=== PATIENT | male | born 1995 | race Caucasian/White ===

== ENCOUNTER → 2024-12-20 15:11 | Outpatient (CLI) | payer SELFPAY ==
--- NOTE | 2024-12-20 15:16 | DI.RAD.S_ITS ---
PROCEDURE: XR LUMBAR SPINE 2-3V INDICATIONS: acute on chronic midline LBP pn L4-5 TECHNIQUE: 3 views of the lumbar spine were acquired. COMPARISON: None. FINDINGS: Bones: 5 [id number] vertebrae are present. There is straightening of normal lumbar lordosis. No vertebral body compression fractures. No suspicious bony lesions. Soft tissues: Overlying bowel gas pattern is normal. No suspicious soft tissue calcifications. IMPRESSION: No acute vertebral body compression fracture or spondylolisthesis. Dictated by: Zeeshan Luu M.D. on 12/20/2024 at 16:02 Approved by: Zeeshan Luu M.D. on 12/20/2024 at 16:02
== END ==
LOC: RAD 15:16
PROVIDERS: Referring Provider Student in an Organized Health Care Education/Training Program; Visit Provider Student in an Organized Health Care Education/Training Program
DX: M54.50 Low back pain, unspecified (principal)
CPT/HCPCS: 72100